=== PATIENT | male | born 1960 | race African-American/Black ===

== ENCOUNTER 2020-10-14 09:09 | Emergency (ER) | payer MEDICAID, OTHER ==
[~2020-10-14] VITALS: Ht 182.9 cm; Wt 88.9 kg
[2020-10-14 10:41] VITALS: BP 135/95
== END 2020-10-14 10:50 | disposition home or self-care (01) ==
LOC: ER 09:09
DX: I10 Essential (primary) hypertension (principal); F41.9 Anxiety disorder, unspecified; F17.210 Nicotine dependence, cigarettes, uncomplicated
CPT/HCPCS: 93005